=== PATIENT | female | born 1960 | race Caucasian/White ===

== ENCOUNTER → 2023-06-22 14:51 | Outpatient (REF) | payer BC, SELFPAY | LOC: RAD 14:51 | PROVIDERS: ATTENDING PHYSICIAN Internal Medicine; FAMILY PHYSICIAN Physician Assistant Medical | DX: D12.6 Benign neoplasm of colon, unspecified (principal); K38.9 Disease of appendix, unspecified | CPT/HCPCS: 74177; Q9967 ==

== ENCOUNTER → 2023-09-14 12:00 | Outpatient (REF) | payer BC, SELFPAY | LOC: DHSLP 12:00 | PROVIDERS: ATTENDING PHYSICIAN Internal Medicine; FAMILY PHYSICIAN Physician Assistant Medical | DX: G47.00 Insomnia, unspecified (principal); G47.33 Obstructive sleep apnea (adult) (pediatric); R06.83 Snoring | CPT/HCPCS: 95800 ==

== ENCOUNTER 2023-11-18 06:22 | Day surgery (SDC) | payer MEDICARE, SELFPAY ==
[2023-11-18 07:49] VITALS: BMI 21.2
[2023-11-18 07:50] VITALS: BMI 21.2
[2023-11-18 07:51] VITALS: BP 139/82
[2023-11-18 11:10] VITALS: BP 122/63
[2023-11-18 11:15] VITALS: BP 117/75
[2023-11-18 11:30] VITALS: BP 113/75
[2023-11-18 11:45] VITALS: BP 131/68
== END 2023-11-18 12:14 | disposition home or self-care (01) ==
LOC: GI 06:22
PROVIDERS: ATTENDING PHYSICIAN Internal Medicine Gastroenterology
DX: D12.3 Benign neoplasm of transverse colon (principal); K64.0 First degree hemorrhoids; Z98.890 Other specified postprocedural states; Z86.03 Personal history of neoplasm of uncertain behavior
CPT/HCPCS: 45385; 88305

== ENCOUNTER → 2024-03-16 10:03 | Outpatient (REF) | payer MEDICARE, BC, SELFPAY | LOC: HWWDC 10:03 | PROVIDERS: ATTENDING PHYSICIAN Obstetrics & Gynecology; FAMILY PHYSICIAN Physician Assistant Medical | DX: Z12.31 Encounter for screening mammogram for malignant neoplasm of breast (principal) | CPT/HCPCS: 77063; 77067 ==